=== PATIENT | female | born 1940 | race Caucasian/White ===

== ENCOUNTER 2019-08-02 08:32 | Inpatient (IN) | payer MEDICARE, MEDICAID ==
[2019-07-29 13:39] LABS: BASOPHILS % (AUTO) 0.3 % (0-1); EOSINOPHILS % (AUTO) 0.1 % (0-6); LYMPHOCYTES # (AUTO) 0.6 X10'3 (1.1-4.8); MEAN CORPUSCULAR HEMOGLOBIN 30.5 PG (27.0-31.0); MEAN CORPUSCULAR HGB CONC 33.6 g/dL (33.0-36.5); MEAN CORPUSCULAR VOLUME 90.8 FL (78-98); MEAN PLATELET VOLUME 9.2 FL (7.4-10.4); MONOCYTES # (AUTO) 0.6 X10'3 (0-0.9); MONOCYTES % (AUTO) 4.5 % (2-12); NEUTROPHILS % (AUTO) 91.1 % (42-75); PRE OP HEMATOCRIT 42.9 % (35.0-45.0); PRE OP HEMOGLOBIN 14.4 g/dL (12.0-16.0); PRE OP PLATELET COUNT 109 X10'3 (140-440); RED BLOOD COUNT 4.73 X10'6 (4.20-5.60); RED CELL DISTRIBUTION WIDTH 13.8 % (11.5-14.5)
[2019-07-29 13:45] LABS: HEMOGLOBIN A1C 5.5 % (4.5-6.2)
[2019-07-29 13:50] LABS: PRE OP INR 1.2 INR; PRE OP PROTIME 12.2 SECONDS (9.0-12.0)
[2019-07-29 13:53] LABS: ALBUMIN 3.3 G/DL (3.4-5.0); ALBUMIN/GLOBULIN RATIO 0.8 (1.1-1.5); ALKALINE PHOSPHATASE 91 IU/L (46-116); BLOOD UREA NITROGEN 27 MG/DL (7-18); BUN/CREATININE RATIO 25.7 (6.6-38.0); CALCIUM 9.1 MG/DL (8.5-10.1); CHLORIDE 100 MMOL/L (99-107); CREATININE 1.05 MG/DL (0.40-0.90); PRE OP ALT 44 U/L (30-65); PRE OP ANION GAP 10 (8-16); PRE OP AST 36 U/L (10-37); PRE OP BILIRUB, TOTAL 1.6 MG/DL (0.0-1.0); PRE OP GLUCOSE 167 MG/DL (70-104); PRE OP POTASSIUM 3.7 MMOL/L (3.4-5.1); PRE OP SODIUM 138 MMOL/L (135-145); TOTAL CARBON DIOXIDE 28.5 MMOL/L (24-32); TOTAL PROTEIN 7.5 G/DL (6.4-8.2); eGFR 50 ML/MIN
[~2019-08-02] VITALS: Ht 172.7 cm; Wt 40.2 kg
[2019-08-02] VITALS (20 sets, daily range): BP systolic 128–167; BP diastolic 55–99
[~2019-08-02 08:32] MED LIST: MULT-955 PO; [UNRECOGNIZED DRUG - OTHER]; famotidine 20mg tablet PO ONE
[2019-08-02] MEDS ORDERED: ceFOXitin 2 GM ADDvantage bag 100 ML IV ONE (09:30)
[2019-08-02] MEDS: ringers solution, lacted 1,000 ML IV SCH ×2 (10:25→18:05)
[2019-08-02] MEDS ORDERED: ringers solution, lacted 1,000 ML IV SCH (10:33)
[2019-08-02] MEDS ORDERED: morphine 4 MG/ML inj SYRINge IV PRN ×2 (10:35)
[2019-08-02] MEDS ORDERED: fentaNYL/PF 50MCG/1 ML 2ML syringe IV PRN ×2 (10:35)
[2019-08-02] MEDS ORDERED: hydrALAZINE 20mg/ml inj. IV PRN (10:35)
[2019-08-02] MEDS ORDERED: ondansetron/PF 4mg/2ml inj IV PRN ×2 (10:35→13:00)
[2019-08-02] MEDS ORDERED: labetalol 20mg/4ml (5mg/ml) syringe IV PRN (10:35)
[2019-08-02] MEDS ORDERED: ROPIVAcaine 0.5% (5mg/ml) 30ml vial ONE (10:57)
[2019-08-02] MEDS ORDERED: BUPIVACAINE liposomal/PF 13.3 MG/ML vial IM ONE (10:58)
[2019-08-02] MEDS ORDERED: etomidate 2mg/ml inj. ONE (11:27)
[2019-08-02] MEDS ORDERED: dexamethasone sod phosphate 10mg/ml inj ONE (11:28)
[2019-08-02] MEDS ORDERED: neostigmine methylsulfate 1 MG/ML 10ml vial ONE (11:28)
[2019-08-02] MEDS ORDERED: sevoflurane 250ml liquid IH ONE (11:28)
[2019-08-02] MEDS ORDERED: glycopyrrolate 0.2mg/ml inj ONE (11:28)
[2019-08-02] MEDS ORDERED: ondansetron/PF 4mg/2ml inj ONE (11:44)
[2019-08-02] MEDS ORDERED: fentaNYL/PF 50MCG/1 ML 2ML syringe ONE (11:44)
[2019-08-02] MEDS ORDERED: rocuronium 10mg/ml inj IV ONE (11:44)
[2019-08-02] MEDS ORDERED: albumin (Human) 5% 250ml 250 ML IV ONE ×2 (11:46→11:48)
[2019-08-02] MEDS ORDERED: naloxone 0.4 mg/ml inj ONE (12:36)
--- NOTE | 2019-08-02 12:46 | NUR ---
Received from OR via , accompanied by Anesthesiologist DR ELLINGTON and report given by Anesthesiolgist. AWAKENS TO VOICE. VITALS STABLE. DRESSING DI. ABHILASH PAIN. ABD SOFT.
[2019-08-02] MEDS ORDERED: Potassium Cl inj 20 MEQ in ringers solution, lacted 1,000 ML IV SCH (12:56)
[2019-08-02] MEDS ORDERED: naloxone 0.4 mg/ml inj IV PRN (13:00)
[2019-08-02] MEDS ORDERED: CADD PCA waste documentation MC PRN (13:00)
[2019-08-02] MEDS ORDERED: morphine/NS 5 mg/ml CADD 50 ML IV SCH (13:00)
[2019-08-02] MEDS: morphine/NS 5 mg/ml CADD 50 ML IV SCH ×5 (13:49→23:00)
--- NOTE | 2019-08-02 14:26 | NUR ---
Report called to receiving nurse. Transferred via BED Belongings . Special Issues communicated to receiving nurse. AWAKE AND ORIENTED. VITALS STABLE. DRESSING DI. ABHILASH PAIN. TO SURGICAL RM 354A AT THIS TIME.
--- NOTE | 2019-08-02 18:30 | NUR ---
Patient in room [facility]. I have received report from Mary LIMA and had the opportunity to ask questions and assume patient care.
--- NOTE | 2019-08-02 18:42 | NUR ---
Problems reprioritized. Patient report given, questions answered & plan of care reviewed with Kika LIMA. Patient alert and oriented x3. No c/o pain or discomfort. arciniega cath in place draining well. Adb soft, peristalsis absent. midline abd. dressing clean and dry. colostomy to RLQ. stoma pink and moist.
[2019-08-03] VITALS: BP 149/62
[2019-08-03] MEDS: morphine/NS 5 mg/ml CADD 50 ML IV SCH ×7 (01:00→13:00)
--- NOTE | 2019-08-03 06:00 | NUR ---
Problems reprioritized. Patient report given, questions answered & plan of care reviewed with Clari LIMA and nuring student..
--- NOTE | 2019-08-03 06:30 | NUR ---
Patient in room [facility]. I have received report from NEDA LIMA and had the opportunity to ask questions and assume patient care.
[2019-08-03 06:39] LABS: BASOPHILS % (AUTO) 0.2 % (0-1); EOSINOPHILS % (AUTO) 0 % (0-6); HEMATOCRIT 39.7 % (35.0-45.0); HEMOGLOBIN 13.6 g/dl (12.0-16.0); LYMPHOCYTES # (AUTO) 0.6 X10'3 (1.1-4.8); MEAN CORPUSCULAR HEMOGLOBIN 30.5 PG (27.0-31.0); MEAN CORPUSCULAR HGB CONC 34.1 g/dL (33.0-36.5); MEAN CORPUSCULAR VOLUME 89.6 FL (78-98); MEAN PLATELET VOLUME 10.1 FL (7.4-10.4); MONOCYTES # (AUTO) 0.2 X10'3 (0-0.9); MONOCYTES % (AUTO) 1.7 % (2-12); NEUTROPHILS # (AUTO) 8.3 X10'3 (1.8-7.7); NEUTROPHILS % (AUTO) 91.1 % (42-75); PLATELET COUNT 96 X10'3 (140-440); RED BLOOD COUNT 4.44 X10'6 (4.20-5.60); RED CELL DISTRIBUTION WIDTH 13.4 % (11.5-14.5); WHITE BLOOD COUNT 9.1 X10'3 (4.5-11.0)
[2019-08-03 07:00] VITALS: BP 134/65
[2019-08-03 07:04] LABS: LARGE PLATELETS FEW; PLATELET ESTIMATE DECREASED
[2019-08-03] MEDS: enoxaparin 30mg/0.3ml syringe SQ SCH (07:20)
[2019-08-03 07:27] LABS: ALBUMIN 3.6 G/DL (3.4-5.0); ANION GAP 18 (8-16); BLOOD UREA NITROGEN 17 MG/DL (7-18); BUN/CREATININE RATIO 18.9 (6.6-38.0); CALCIUM 8.9 MG/DL (8.5-10.1); CHLORIDE 100 MMOL/L (99-107); GLUCOSE 124 MG/DL (70-104); POTASSIUM 4.1 MMOL/L (3.5-5.1); SODIUM 140 MMOL/L (135-145); TOTAL CARBON DIOXIDE 21.7 MMOL/L (24-32); eGFR 60 ML/MIN
[2019-08-03] MEDS: multivitamins, therapeutics tablet PO SCH (08:58)
[2019-08-03 11:00] VITALS: BP 124/67
--- NOTE | 2019-08-03 15:57 | NUR ---
PT HAS AMBULATED SEVERAL TIMES TODAY. HER COLOSTOMY BAG HAS NOT HAD ANY OUTPUT BUT SHE DOES CURRENTLY HAVE ACTIVE BS
--- NOTE | 2019-08-03 16:34 | NUR ---
Noted that pt has a low BMI of 13.5 using current scaled wt of 88 lbs. Pt seen at bedside with caregiver present. Pt reports UBW of 93 lbs and states she has lost wt over the last 2-3 weeks resulting in a wt of 66 lbs, however not likely as current wt was obtained with a standing scale. Most recent scaled wt hx is 106 lbs taken 07/31/15 using a standing scale. Pt denied wt loss or a decreased appetite during malnutrition risk screen with RN. Pt endorses a good appetite and is currently on clear liquid diet documented with 100% PO intake however not able to meet nutrient needs given the nature of the diet. Pt with no significant decrease in muscle strength or edema. Pt appears cachectic with visible fat and muscle wasting qualifying for severe malnutrition, MD notified. Pt admit for colostomy reversal however pt continues with colostomy and is s/p ex lap with lysis of adhesions. Pt requested information on how to gain weight and was provided with written and verbal malnutrition education with ONS recommendations, high protein high calorie education, and underweight nutrition therapy education as well as RD contact information. Pt denies food allergies, difficulty chewing/swallowing, or constipation/diarrhea. LBM 08/01. Will continue to follow. Recommendations: 1) Advance diet to regular as medically indicated 2) Monitor need for ONS 3) Bowel care 4) Wt per rx Addendum: 08/03/19 at [address] Amended: Links added.
[2019-08-03] MEDS ORDERED: morphine 2 MG/ML inj. syringe IV PRN (17:05)
--- NOTE | 2019-08-03 18:13 | NUR ---
Problems reprioritized. Patient report given, questions answered & plan of care reviewed with JOCELYN LIMA.
--- NOTE | 2019-08-03 18:18 | NUR ---
Received report from Clari LIMA pt is sitting up in bed on RA, eating dinner, call lgiht and items of freq use within reach.
[2019-08-03 19:00] VITALS: BP 113/50
--- NOTE | 2019-08-03 20:54 | NUR ---
Wasted morphine CADD with Camila Stack RN, was able to waste 43mL, last set of numbers on CADD was as follows Residual Volume 48mL, Given/Attempts: 3/3, 3mg given, pain 03/02
--- NOTE | 2019-08-03 20:54 | NUR ---
Witnessed waist of Morphine MASTER CONTROL OPERATOR with Aileen Crawley RN 43ml .
[2019-08-04 00:20] VITALS: BP 110/53
[2019-08-04 04:37] LABS: BASOPHILS % (AUTO) 0 % (0-1); EOSINOPHILS % (AUTO) 0 % (0-6); HEMATOCRIT 35.8 % (35.0-45.0); HEMOGLOBIN 12.4 g/dl (12.0-16.0); LYMPHOCYTES # (AUTO) 0.9 X10'3 (1.1-4.8); LYMPHOCYTES % (AUTO) 9.4 % (21-51); MEAN CORPUSCULAR HEMOGLOBIN 30.6 PG (27.0-31.0); MEAN CORPUSCULAR HGB CONC 34.5 g/dL (33.0-36.5); MEAN CORPUSCULAR VOLUME 88.7 FL (78-98); MEAN PLATELET VOLUME 9.6 FL (7.4-10.4); MONOCYTES # (AUTO) 0.7 X10'3 (0-0.9); MONOCYTES % (AUTO) 7.8 % (2-12); NEUTROPHILS # (AUTO) 7.5 X10'3 (1.8-7.7); NEUTROPHILS % (AUTO) 82.8 % (42-75); PLATELET COUNT 111 X10'3 (140-440); RED BLOOD COUNT 4.04 X10'6 (4.20-5.60); RED CELL DISTRIBUTION WIDTH 13.3 % (11.5-14.5)
[2019-08-04 04:46] LABS: ALBUMIN 3.1 G/DL (3.4-5.0); ANION GAP 5 (8-16); BLOOD UREA NITROGEN 21 MG/DL (7-18); BUN/CREATININE RATIO 28.8 (6.6-38.0); CHLORIDE 104 MMOL/L (99-107); CREATININE 0.73 MG/DL (0.40-0.90); GLUCOSE 146 MG/DL (70-104); POTASSIUM 4.2 MMOL/L (3.5-5.1); SODIUM 141 MMOL/L (135-145); TOTAL CARBON DIOXIDE 31.6 MMOL/L (24-32); eGFR 77 ML/MIN
--- NOTE | 2019-08-04 06:12 | NUR ---
gave report to Clari LIMA pt is resting on RA, in no apparent distress, breaths even and unlabored
--- NOTE | 2019-08-04 06:33 | NUR ---
Patient in room [facility]. I have received report from JOCELYN LIMA and had the opportunity to ask questions and assume patient care.
[2019-08-04 07:00] VITALS: BP 134/61
[2019-08-04] MEDS: multivitamins, therapeutics tablet PO SCH (08:49)
[2019-08-04] MEDS: enoxaparin 30mg/0.3ml syringe SQ SCH (08:50)
[2019-08-04 11:00] VITALS: BP 105/59
--- NOTE | 2019-08-04 18:44 | NUR ---
Problems reprioritized. Patient report given, questions answered & plan of care reviewed with JOCELYN LIMA.
--- NOTE | 2019-08-04 18:45 | NUR ---
Patient in room [facility]. I have received report from Clari LIMA and had the opportunity to ask questions and assume patient care.
[2019-08-04 19:00] VITALS: BP 126/65
[2019-08-05 00:30] VITALS: BP 110/62
[2019-08-05 06:38] LABS: BASOPHILS % (AUTO) 0.1 % (0-1); EOSINOPHILS % (AUTO) 0.7 % (0-6); HEMOGLOBIN 13.1 g/dl (12.0-16.0); LYMPHOCYTES # (AUTO) 2.5 X10'3 (1.1-4.8); LYMPHOCYTES % (AUTO) 37.2 % (21-51); MEAN CORPUSCULAR HEMOGLOBIN 30.2 PG (27.0-31.0); MEAN CORPUSCULAR HGB CONC 33.7 g/dL (33.0-36.5); MEAN CORPUSCULAR VOLUME 89.7 FL (78-98); MONOCYTES # (AUTO) 0.6 X10'3 (0-0.9); MONOCYTES % (AUTO) 8.5 % (2-12); NEUTROPHILS # (AUTO) 3.6 X10'3 (1.8-7.7); NEUTROPHILS % (AUTO) 53.5 % (42-75); PLATELET COUNT 115 X10'3 (140-440); RED BLOOD COUNT 4.35 X10'6 (4.20-5.60); RED CELL DISTRIBUTION WIDTH 13.3 % (11.5-14.5); WHITE BLOOD COUNT 6.7 X10'3 (4.5-11.0)
--- NOTE | 2019-08-05 06:42 | NUR ---
Gave report to Yessi LIMA and Jamar LIMA pt is resting on RA in no apparent distress, on RA, call light and items of freq use within reach.
[2019-08-05 06:55] LABS: ALBUMIN 3.1 G/DL (3.4-5.0); ANION GAP 3 (8-16); BLOOD UREA NITROGEN 21 MG/DL (7-18); BUN/CREATININE RATIO 22.8 (6.6-38.0); CALCIUM 8.7 MG/DL (8.5-10.1); CHLORIDE 105 MMOL/L (99-107); CREATININE 0.92 MG/DL (0.40-0.90); GLUCOSE 89 MG/DL (70-104); POTASSIUM 4.4 MMOL/L (3.5-5.1); SODIUM 141 MMOL/L (135-145); TOTAL CARBON DIOXIDE 32.8 MMOL/L (24-32); eGFR 59 ML/MIN
[2019-08-05 07:00] VITALS: BP 129/62
[2019-08-05] MEDS ORDERED: enoxaparin 40mg/0.4ml syringe SQ SCH (08:00)
[2019-08-05] MEDS ORDERED: HYDR-4383 PO (09:22)
[2019-08-05] MEDS: multivitamins, therapeutics tablet PO SCH (09:34)
--- NOTE | 2019-08-05 11:25 | NUR ---
patient discharged to home with friend. Patient alert, oriented and appropriate for discharge. Patient IV removed, patient left will all belongings and verbalized understanding of discharge teaching and follow up plans with MD. Patient has been discharged with no new medications and declined their prescription for pain medication. Addendum: 08/05/19 at 1211 by Jamar Prado RN Patient escorted to private vehicle by staff member via wheelchair.
== END 2019-08-05 11:32 | disposition home health service (06) | DRG 337 ==
LOC: PAS IN 08:32 → EDSTATUS 12:00 → SUR 3N 14:25
PROVIDERS: ADMIT Surgery; ATTEND Surgery
PROC: 0DNW0ZZ Release Peritoneum, Open Approach (ICD-10-PCS; principal; 2019-08-02 11:28)
DX: Z43.3 Encounter for attention to colostomy (principal); K66.0 Peritoneal adhesions (postprocedural) (postinfection); E11.22 Type 2 diabetes mellitus with diabetic chronic kidney disease; N18.9 Chronic kidney disease, unspecified; Z90.49 Acquired absence of other specified parts of digestive tract; Z82.49 Family history of ischemic heart disease and other diseases of the circulatory system; Z87.891 Personal history of nicotine dependence
CPT/HCPCS: 36415; 80048; 80053; 82948; 83036; 85025; 85610; 85730; 86885; 86900; 86901; 87081; 93005; A4215; A4421; A4618; A7000; C1758; C9290; G0378; J0694; J1100; J1650; J2270; J2310; J2405; J2710; J2795; J3010; J3490; J7120; P9045

== ENCOUNTER 2024-07-20 14:41 | Inpatient (IN) | payer MEDICARE, MEDICAID ==
[~2024-07-20] VITALS: Ht 165.1 cm; Wt 61.0 kg
[~2024-07-20 14:41] MED LIST changes: +HYDR-4383 PO; -famotidine 20mg tablet PO ONE
[2024-07-20 16:35] LABS: BASOPHILS # (AUTO) 0.2 X10'3 (0-0.2); BASOPHILS % (AUTO) 0.9 % (0-1); EOSINOPHILS # (AUTO) 0.1 X10'3 (0-0.9); EOSINOPHILS % (AUTO) 0.4 % (0-6); HEMATOCRIT 26.7 % (35.0-45.0); HEMOGLOBIN 8.7 g/dl (12.0-16.0); LYMPHOCYTES # (AUTO) 2.1 X10'3 (1.1-4.8); LYMPHOCYTES % (AUTO) 12.9 % (21-51); MEAN CORPUSCULAR HEMOGLOBIN 29.1 PG (27.0-31.0); MEAN CORPUSCULAR HGB CONC 32.7 g/dL (33.0-36.5); MONOCYTES # (AUTO) 0.8 X10'3 (0-0.9); NEUTROPHILS # (AUTO) 13.1 X10'3 (1.8-7.7); NEUTROPHILS % (AUTO) 80.8 % (42-75); PLATELET COUNT 236 X10'3 (140-440); RED CELL DISTRIBUTION WIDTH 16.8 % (11.5-14.5); WHITE BLOOD COUNT 16.2 X10'3 (4.5-11.0)
[2024-07-20 16:46] LABS: INR 1.1 INR; PROTHROMBIN TIME 11.6 SECONDS (9.0-12.0)
[2024-07-20 17:03] LABS: ALANINE AMINOTRANSFERASE 20 U/L (12-78); ALBUMIN 2.2 G/DL (3.4-5.0); ALBUMIN/GLOBULIN RATIO 0.6 (1.1-1.5); ALKALINE PHOSPHATASE 74 IU/L (46-116); ANION GAP 7 (8-16); ASPARTATE AMINO TRANSFERASE 18 U/L (10-37); BLOOD UREA NITROGEN 44 MG/DL (7-18); BUN/CREATININE RATIO 53.7 (10.0-20.0); CALCIUM 7.4 MG/DL (8.5-10.1); CHLORIDE 104 MMOL/L (99-107); CREATININE 0.82 MG/DL (0.40-0.90); GLUCOSE 118 MG/DL (70-104); POTASSIUM 4.4 MMOL/L (3.5-5.1); SODIUM 137 MMOL/L (135-145); TOTAL CARBON DIOXIDE 26.2 MMOL/L (24-32); TOTAL PROTEIN 5.9 G/DL (6.4-8.2); eCRCL 45 ML/MIN; eGFR 66 ML/MIN
[2024-07-20 17:04] LABS: PRO BRAIN NATRIURETIC PEPTIDE 381 PG/ML (0-450)
[2024-07-20] MEDS ORDERED: magnesium Cl slow-release 64mg tablet PO PRN (18:00)
[2024-07-20] MEDS ORDERED: acetaminophen 325mg tablet PO PRN (18:00)
[2024-07-20] MEDS ORDERED: potassium Cl 20 mEq SR tablet PO PRN ×2 (18:00)
[2024-07-20] MEDS ORDERED: mag hydrox/Alum hydrox/simeth 30ml oral suspension PO PRN (18:00)
[2024-07-20] MEDS ORDERED: magnesium sulf-water 2g/50mL 50 ML IV PRN (18:00)
[2024-07-20] MEDS ORDERED: magnesium sulf-water 4G/100mL 100 ML IV PRN (18:00)
[2024-07-20] MEDS ORDERED: potassium Cl 40MEQ/1/2NS 520ml 520 ML IV PRN (18:00)
[2024-07-20] MEDS ORDERED: ondansetron/PF 4mg/2ml inj IV PRN (18:00)
[2024-07-20] MEDS: docusate sod 100mg capsule PO SCH (20:00)
[2024-07-20] MEDS: K and/or MAG REPLACEMENT MC SCH (20:00)
[2024-07-20] MEDS: pantoprazole 40MG/NS 100ML BAG 100 ML IV SCH (21:37)
[2024-07-20] MEDS: dextrose 5%-1/2 normal saline 1,000 ML IV SCH (21:38)
[2024-07-20 23:05] VITALS: BP 93/35; PULSE 98; RESP 12; TEMP 98.6; O2SAT 94
[2024-07-21] VITALS (14 sets, daily range): BP systolic 78–129; BP diastolic 39–95; PULSE 80–103; RESP 10–27; TEMP 97.6–98.8; O2SAT 92–97
[2024-07-21] MEDS ORDERED: ACET325T55 PO (01:17)
[2024-07-21] MEDS ORDERED: ASPI81TA52 PO (01:17)
[2024-07-21] MEDS ORDERED: MIRT-88 PO (01:17)
[2024-07-21] MEDS ORDERED: CYAN500T71 PO (01:17)
[2024-07-21] MEDS: LORazepam 2 mg/ml vial IM ONE (02:15)
[2024-07-21 09:25] LABS: BASOPHILS % (AUTO) 0.3 % (0-1); EOSINOPHILS # (AUTO) 0.2 X10'3 (0-0.9); EOSINOPHILS % (AUTO) 2.2 % (0-6); HEMATOCRIT 22.7 % (35.0-45.0); HEMOGLOBIN 7.3 g/dl (12.0-16.0); LYMPHOCYTES # (AUTO) 1.1 X10'3 (1.1-4.8); LYMPHOCYTES % (AUTO) 14.1 % (21-51); MEAN CORPUSCULAR HEMOGLOBIN 29.5 PG (27.0-31.0); MEAN CORPUSCULAR HGB CONC 32.4 g/dL (33.0-36.5); MEAN PLATELET VOLUME 8.8 FL (7.4-10.4); MONOCYTES # (AUTO) 0.4 X10'3 (0-0.9); MONOCYTES % (AUTO) 4.7 % (2-12); NEUTROPHILS # (AUTO) 6.2 X10'3 (1.8-7.7); NEUTROPHILS % (AUTO) 78.7 % (42-75); PLATELET COUNT 190 X10'3 (140-440); RED BLOOD COUNT 2.49 X10'6 (4.20-5.60); RED CELL DISTRIBUTION WIDTH 17.4 % (11.5-14.5); WHITE BLOOD COUNT 7.9 X10'3 (4.5-11.0)
[2024-07-21 09:33] LABS: ALANINE AMINOTRANSFERASE 18 U/L (12-78); ALBUMIN 2.1 G/DL (3.4-5.0); ALBUMIN/GLOBULIN RATIO 0.7 (1.1-1.5); ALKALINE PHOSPHATASE 78 IU/L (46-116); ANION GAP 8 (8-16); ASPARTATE AMINO TRANSFERASE 18 U/L (10-37); BILIRUBIN,TOTAL 0.8 MG/DL (0.1-1.0); BLOOD UREA NITROGEN 29 MG/DL (7-18); BUN/CREATININE RATIO 46.8 (10.0-20.0); CHLORIDE 109 MMOL/L (99-107); CREATININE 0.62 MG/DL (0.40-0.90); GLUCOSE 109 MG/DL (70-104); SODIUM 141 MMOL/L (135-145); TOTAL CARBON DIOXIDE 24.3 MMOL/L (24-32); TOTAL PROTEIN 5.3 G/DL (6.4-8.2); eCRCL 60 ML/MIN; eGFR > 90 ML/MIN
[2024-07-21] MEDS ORDERED: MIDAZolam 1 MG/ML 5ML VIAL ONE (11:15)
[2024-07-21] MEDS ORDERED: fentaNYL/PF 50MCG/1 ML 2ML syringe ONE (11:15)
[2024-07-21] MEDS ORDERED: LIDOcaine 2% Viscous 15ml cup ONE (11:15)
[2024-07-21] MEDS ORDERED: simethicone 40mg/0.6ml oral drops 30ml ONE (11:55)
[2024-07-21] MEDS: lactose-reduced food (Ensure High Protein) 237ml bottle PO SCH (18:00)
[2024-07-22] VITALS (9 sets, daily range): BP systolic 99–134; BP diastolic 51–95; PULSE 79–93; RESP 14–30; TEMP 97.5–98.3; O2SAT 91–94
[2024-07-22 07:01] LABS: BASOPHILS % (AUTO) 0.4 % (0-1); EOSINOPHILS # (AUTO) 0.2 X10'3 (0-0.9); EOSINOPHILS % (AUTO) 2.9 % (0-6); HEMATOCRIT 26.6 % (35.0-45.0); HEMOGLOBIN 8.9 g/dl (12.0-16.0); LYMPHOCYTES # (AUTO) 1.1 X10'3 (1.1-4.8); LYMPHOCYTES % (AUTO) 13.2 % (21-51); MEAN CORPUSCULAR HEMOGLOBIN 29.9 PG (27.0-31.0); MEAN CORPUSCULAR HGB CONC 33.5 g/dL (33.0-36.5); MEAN CORPUSCULAR VOLUME 89.3 FL (78-98); MEAN PLATELET VOLUME 8.6 FL (7.4-10.4); MONOCYTES # (AUTO) 0.4 X10'3 (0-0.9); MONOCYTES % (AUTO) 5.1 % (2-12); NEUTROPHILS # (AUTO) 6.4 X10'3 (1.8-7.7); NEUTROPHILS % (AUTO) 78.4 % (42-75); PLATELET COUNT 181 X10'3 (140-440); RED BLOOD COUNT 2.97 X10'6 (4.20-5.60); RED CELL DISTRIBUTION WIDTH 17.2 % (11.5-14.5); WHITE BLOOD COUNT 8.2 X10'3 (4.5-11.0)
[2024-07-22 07:26] LABS: ALANINE AMINOTRANSFERASE 17 U/L (12-78); ALBUMIN 2.1 G/DL (3.4-5.0); ALBUMIN/GLOBULIN RATIO 0.6 (1.1-1.5); ALKALINE PHOSPHATASE 82 IU/L (46-116); ANION GAP 5 (8-16); ASPARTATE AMINO TRANSFERASE 17 U/L (10-37); BILIRUBIN,TOTAL 0.8 MG/DL (0.1-1.0); BLOOD UREA NITROGEN 22 MG/DL (7-18); CALCIUM 7.7 MG/DL (8.5-10.1); CHLORIDE 106 MMOL/L (99-107); CREATININE 0.71 MG/DL (0.40-0.90); GLUCOSE 146 MG/DL (70-104); MAGNESIUM 1.9 MG/DL (1.5-2.4); POTASSIUM 3.9 MMOL/L (3.5-5.1); SODIUM 138 MMOL/L (135-145); TOTAL CARBON DIOXIDE 26.7 MMOL/L (24-32); TOTAL PROTEIN 5.5 G/DL (6.4-8.2); eCRCL 52 ML/MIN; eGFR 78 ML/MIN
[2024-07-22] MEDS: MULTIVIT-MIN/FERROUS GLUCONATE 9 MG/15 ML LIQUID PO SCH (08:05)
[2024-07-23] VITALS (7 sets, daily range): BP systolic 123–147; BP diastolic 59–79; PULSE 77–96; RESP 12–21; TEMP 97.2–98.1; O2SAT 93–96
[2024-07-23 08:34] LABS: BASOPHILS % (AUTO) 0.4 % (0-1); EOSINOPHILS # (AUTO) 0.2 X10'3 (0-0.9); EOSINOPHILS % (AUTO) 2.7 % (0-6); HEMATOCRIT 26.7 % (35.0-45.0); LYMPHOCYTES # (AUTO) 0.9 X10'3 (1.1-4.8); LYMPHOCYTES % (AUTO) 13.5 % (21-51); MEAN CORPUSCULAR HEMOGLOBIN 30.3 PG (27.0-31.0); MEAN CORPUSCULAR HGB CONC 33.8 g/dL (33.0-36.5); MEAN CORPUSCULAR VOLUME 89.7 FL (78-98); MEAN PLATELET VOLUME 8.3 FL (7.4-10.4); MONOCYTES # (AUTO) 0.3 X10'3 (0-0.9); MONOCYTES % (AUTO) 4.6 % (2-12); NEUTROPHILS # (AUTO) 5.4 X10'3 (1.8-7.7); NEUTROPHILS % (AUTO) 78.8 % (42-75); PLATELET COUNT 176 X10'3 (140-440); RED BLOOD COUNT 2.98 X10'6 (4.20-5.60); WHITE BLOOD COUNT 6.9 X10'3 (4.5-11.0)
[2024-07-23 08:49] LABS: ALANINE AMINOTRANSFERASE 15 U/L (12-78); ALBUMIN 2.1 G/DL (3.4-5.0); ALBUMIN/GLOBULIN RATIO 0.6 (1.1-1.5); ALKALINE PHOSPHATASE 90 IU/L (46-116); ANION GAP 5 (8-16); ASPARTATE AMINO TRANSFERASE 16 U/L (10-37); BLOOD UREA NITROGEN 17 MG/DL (7-18); CALCIUM 7.7 MG/DL (8.5-10.1); CHLORIDE 105 MMOL/L (99-107); CREATININE 0.63 MG/DL (0.40-0.90); GLUCOSE 102 MG/DL (70-104); MAGNESIUM 1.7 MG/DL (1.5-2.4); POTASSIUM 3.9 MMOL/L (3.5-5.1); SODIUM 139 MMOL/L (135-145); TOTAL CARBON DIOXIDE 29.3 MMOL/L (24-32); TOTAL PROTEIN 5.6 G/DL (6.4-8.2); eCRCL 59 ML/MIN; eGFR 90 ML/MIN
[2024-07-23] MEDS: magnesium hydroxide 30ml (MOM) UD suspension PO PRN (08:55)
[2024-07-23] MEDS: pantoprazole 40mg Tablet.DR PO SCH (08:55)
[2024-07-23 17:30] LABS: OCCULT BLOOD STOOL POSITIVE (Neg)
[2024-07-23] MEDS: HYDROcodone/acetaminophen 5mg/325mg tablet PO PRN (22:02)
[2024-07-24] VITALS (8 sets, daily range): BP systolic 97–124; BP diastolic 44–79; PULSE 60–106; RESP 14–18; TEMP 97–98.1; O2SAT 90–95
[2024-07-24 07:41] LABS: BASOPHILS % (AUTO) 0.6 % (0-1); EOSINOPHILS # (AUTO) 0.2 X10'3 (0-0.9); EOSINOPHILS % (AUTO) 2.6 % (0-6); HEMATOCRIT 30.6 % (35.0-45.0); HEMOGLOBIN 10.2 g/dl (12.0-16.0); LYMPHOCYTES % (AUTO) 13.1 % (21-51); MEAN CORPUSCULAR HEMOGLOBIN 30.1 PG (27.0-31.0); MEAN CORPUSCULAR HGB CONC 33.3 g/dL (33.0-36.5); MEAN CORPUSCULAR VOLUME 90.2 FL (78-98); MEAN PLATELET VOLUME 8.2 FL (7.4-10.4); MONOCYTES # (AUTO) 0.5 X10'3 (0-0.9); MONOCYTES % (AUTO) 6.7 % (2-12); NEUTROPHILS # (AUTO) 5.8 X10'3 (1.8-7.7); PLATELET COUNT 178 X10'3 (140-440); RED BLOOD COUNT 3.39 X10'6 (4.20-5.60); RED CELL DISTRIBUTION WIDTH 18.1 % (11.5-14.5); WHITE BLOOD COUNT 7.6 X10'3 (4.5-11.0)
[2024-07-24 08:46] LABS: ALANINE AMINOTRANSFERASE 21 U/L (12-78); ALBUMIN 2.3 G/DL (3.4-5.0); ALBUMIN/GLOBULIN RATIO 0.6 (1.1-1.5); ALKALINE PHOSPHATASE 105 IU/L (46-116); ANION GAP 5 (8-16); ASPARTATE AMINO TRANSFERASE 19 U/L (10-37); BILIRUBIN,TOTAL 0.9 MG/DL (0.1-1.0); BLOOD UREA NITROGEN 21 MG/DL (7-18); BUN/CREATININE RATIO 31.3 (10.0-20.0); CALCIUM 8.2 MG/DL (8.5-10.1); CHLORIDE 102 MMOL/L (99-107); CREATININE 0.67 MG/DL (0.40-0.90); GLUCOSE 101 MG/DL (70-104); POTASSIUM 4.1 MMOL/L (3.5-5.1); SODIUM 139 MMOL/L (135-145); TOTAL CARBON DIOXIDE 31.6 MMOL/L (24-32); TOTAL PROTEIN 6.2 G/DL (6.4-8.2); eCRCL 55 ML/MIN; eGFR 84 ML/MIN
[2024-07-25] VITALS (7 sets, daily range): BP systolic 101–122; BP diastolic 43–65; PULSE 83–95; RESP 13–20; TEMP 97.4–98.6; O2SAT 91–96
[2024-07-25] MEDS: HYDROcodone/acetaminophen 10/325mg tab PO PRN (02:17)
[2024-07-25 07:17] LABS: BASOPHILS % (AUTO) 0.5 % (0-1); EOSINOPHILS # (AUTO) 0.2 X10'3 (0-0.9); EOSINOPHILS % (AUTO) 2.8 % (0-6); HEMATOCRIT 30.6 % (35.0-45.0); LYMPHOCYTES % (AUTO) 13.8 % (21-51); MEAN CORPUSCULAR HEMOGLOBIN 30.3 PG (27.0-31.0); MEAN CORPUSCULAR HGB CONC 32.6 g/dL (33.0-36.5); MEAN CORPUSCULAR VOLUME 92.9 FL (78-98); MEAN PLATELET VOLUME 8.7 FL (7.4-10.4); MONOCYTES # (AUTO) 0.5 X10'3 (0-0.9); MONOCYTES % (AUTO) 6.7 % (2-12); NEUTROPHILS # (AUTO) 5.6 X10'3 (1.8-7.7); NEUTROPHILS % (AUTO) 76.2 % (42-75); PLATELET COUNT 181 X10'3 (140-440); RED BLOOD COUNT 3.29 X10'6 (4.20-5.60); WHITE BLOOD COUNT 7.4 X10'3 (4.5-11.0)
[2024-07-25 07:43] LABS: ALANINE AMINOTRANSFERASE 23 U/L (12-78); ALBUMIN 2.4 G/DL (3.4-5.0); ALBUMIN/GLOBULIN RATIO 0.6 (1.1-1.5); ALKALINE PHOSPHATASE 126 IU/L (46-116); ANION GAP 4 (8-16); ASPARTATE AMINO TRANSFERASE 29 U/L (10-37); BLOOD UREA NITROGEN 23 MG/DL (7-18); BUN/CREATININE RATIO 34.3 (10.0-20.0); CALCIUM 8.2 MG/DL (8.5-10.1); CHLORIDE 102 MMOL/L (99-107); CREATININE 0.67 MG/DL (0.40-0.90); GLUCOSE 102 MG/DL (70-104); SODIUM 139 MMOL/L (135-145); TOTAL CARBON DIOXIDE 33.2 MMOL/L (24-32); TOTAL PROTEIN 6.3 G/DL (6.4-8.2); eCRCL 55 ML/MIN; eGFR 84 ML/MIN
[2024-07-25] MEDS: lactose-reduced food (Ensure High Protein) 237ml bottle PO SCH (17:30)
[2024-07-26 02:00] VITALS: BP 116/56; PULSE 89; RESP 16; TEMP 97.2; O2SAT 90
[2024-07-26 06:00] VITALS: BP 111/48; PULSE 78; RESP 18; TEMP 97.5; O2SAT 95
[2024-07-26 08:00] VITALS: RESP 18; O2SAT 95
[2024-07-26 11:00] VITALS: BP 109/48; PULSE 92; RESP 13; TEMP 97.1; O2SAT 95
== END 2024-07-26 13:18 | DRG 542 ==
LOC: ER 14:42 → ED HOLD 18:01 → PCU 3S 23:05
PROVIDERS: ADMIT Internal Medicine; ATTEND Internal Medicine
PROC: 0DB68ZX Excision of Stomach, Via Natural or Artificial Opening Endoscopic, Diagnostic (ICD-10-PCS; principal; 2024-07-21)
PROC: 30233N1 Transfusion of Nonautologous Red Blood Cells into Peripheral Vein, Percutaneous Approach (ICD-10-PCS; 2024-07-21)
DX: M80.052A Age-related osteoporosis with current pathological fracture, left femur, initial encounter for fracture (principal); E43 Unspecified severe protein-calorie malnutrition; K27.4 Chronic or unspecified peptic ulcer, site unspecified, with hemorrhage; K21.01 Gastro-esophageal reflux disease with esophagitis, with bleeding; K29.61 Other gastritis with bleeding; D62 Acute posthemorrhagic anemia; M84.452A Pathological fracture, left femur, initial encounter for fracture; K44.9 Diaphragmatic hernia without obstruction or gangrene; E11.9 Type 2 diabetes mellitus without complications; D72.829 Elevated white blood cell count, unspecified; F03.90 Unspecified dementia, unspecified severity, without behavioral disturbance, psychotic disturbance, mood disturbance, and anxiety; Z87.11 Personal history of peptic ulcer disease; Z93.3 Colostomy status; Z90.49 Acquired absence of other specified parts of digestive tract; Z68.22 Body mass index [BMI] 22.0-22.9, adult
CPT/HCPCS: 36415; 36430; 43239; 71045; 73560; 80053; 82272; 82948; 83735; 83880; 85025; 85610; 86885; 86900; 86901; 86920; 87081; 88305; 88342; 93005; 97161; 97530; 99152; 99285; A4421; A4620; A6213; A6449; G0378; J2250; J2470; J3010; J7030; J7040; P9016